=== PATIENT | male | born 1980 | race Caucasian/White ===

== ENCOUNTER 2020-10-14 09:50 | Emergency (ER) | payer OTHER ==
[2020-10-14] MEDS ORDERED: AMOXICILLIN500 MG PO (11:23)
== END 2020-10-14 12:16 | disposition home or self-care (01) ==
LOC: ER1 09:50
DX: J02.0 Streptococcal pharyngitis (principal); F17.200 Nicotine dependence, unspecified, uncomplicated; Z20.822 Contact with and (suspected) exposure to COVID-19
CPT/HCPCS: 71045; 87081; 87880; 99283; U0003